=== PATIENT | female | born 1985 | race Caucasian/White ===

== ENCOUNTER 2018-01-26 22:11 | Emergency (ER) | payer BC, SELFPAY ==
[2018-01-26 22:14] VITALS: BP 130/91; PULSE 81; PULSE 84; RESP 14; TEMP 36.6; O2SAT 97; O2SAT 98; BMI 28.4
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
[2018-01-26] MEDS: Diphth,Pertuss(Acell),Tet Vac 0.5 ML Vial IM (23:05)
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
[2018-01-26 23:30] VITALS: BP 124/70; PULSE 75; RESP 14; O2SAT 99
[2018-01-26] MEDS: Acetaminophen 500 MG Tablet 1000 MG PO (23:37)
== END 2018-01-27 00:42 | disposition home or self-care (01) ==
PROVIDERS: Emergency Provider Emergency Medicine
DX: S06.0X0A Concussion without loss of consciousness, initial encounter (principal); S02.2XXA Fracture of nasal bones, initial encounter for closed fracture; S00.81XA Abrasion of other part of head, initial encounter; W22.8XXA Striking against or struck by other objects, initial encounter; Y93.89 Activity, other specified; Y92.008 Other place in unspecified non-institutional (private) residence as the place of occurrence of the external cause; Y99.8 Other external cause status; Z23 Encounter for immunization; Z72.0 Tobacco use
CPT/HCPCS: 12011; 70450; 90715; 99285

== ENCOUNTER → 2019-04-27 10:31 | Outpatient (CLI) | payer OTHER, SELFPAY ==
[2019-04-27 10:04] VITALS: BMI 25.9
--- NOTE | 2019-04-27 10:35 | RAD_ITS ---
STUDY: X-RAY - CERVICAL SPINE REASON FOR EXAM: Female, 33 years old. Neck pain TECHNIQUE: 3 view(s) of the cervical spine were obtained. COMPARISON: None FINDINGS: Normal anterior atlantoaxial articulation. Normal odontoid process. There is straightening of the normal cervical lordosis. Normal vertebral bodies and endplates. Normal disc space heights. Normal visualized intervertebral neuroforamina. The soft tissue structures are unremarkable. RAD/Cerv Spine 2 or 3 Views IMPRESSION: Straightening of the normal lordotic curvature possibly from muscular spasm. Electronically Signed: Clement Miranda MD at 12:13 EDT Tel , Service support ,
== END ==
PROVIDERS: Referring Provider Physician Assistant Surgical; Visit Provider Physician Assistant Surgical
DX: S16.1XXA Strain of muscle, fascia and tendon at neck level, initial encounter (principal)
CPT/HCPCS: 72040

== ENCOUNTER → 2019-05-14 15:50 | Outpatient (CLI) | payer OTHER, BC, SELFPAY ==
[2019-05-08 14:39] VITALS: BMI 25.9
--- NOTE | 2019-05-14 15:50 | MRI_ITS ---
STUDY: MRI CERVICAL SPINE WITHOUT CONTRAST REASON FOR EXAM: Female, 33 years old. Pain radiating to the right shoulder TECHNIQUE: Standardized fat and water weighted pulse sequences were obtained in the sagittal and axial planes. COMPARISON: None FINDINGS: Craniocervical junction is intact and aligned. Cervical spine is straightened and alignment. Marrow is normal. Paraspinous soft tissues are normal. C2-C3 has patent canal and foramina. C3-C4 has uncinate and facet hypertrophy and broad central disc osteophyte with moderate to severe cord compression. Foramina are patent bilaterally. C4-C5 has uncinate and facet hypertrophy and broad disc endplate osteophyte with mild to moderate cord compression. There is mild left and moderate right foraminal stenosis. C5-C6 has patent canal and foramina. C6-C7 has uncinate and facet hypertrophy and right central focal disc in plate osteophyte with mild cord compression. Foramina are patent bilaterally. C7-T1 has patent canal and foramina. Spinal cord is flattened at the compressing levels with normal signal. MRI/Spine Cervical (Routine) IMPRESSION: 1. Moderate to severe cord compression at C3-C4, [id number] at C4-C5. Expedited neurosurgical referral is advised. Electronically Signed: Cayla Escalona, at 17:25 EDT Tel , Service support ,
== END ==
PROVIDERS: Referring Provider Physician Assistant Surgical; Visit Provider Physician Assistant Surgical
DX: S29.019A Strain of muscle and tendon of unspecified wall of thorax, initial encounter (principal); S16.1XXA Strain of muscle, fascia and tendon at neck level, initial encounter
CPT/HCPCS: 72141

== ENCOUNTER 2019-07-22 19:59 | Emergency (ER) | payer OTHER, BC, SELFPAY ==
[2019-06-19 08:16] VITALS: BMI 25.9
[2019-07-22 20:01] VITALS: BP 135/84; PULSE 72; RESP 15; TEMP 36.9; O2SAT 99; BMI 28.3
[2019-07-22] MEDS: HYDROcodone Bitartrate/Apap 5/325 Tablet PO (21:21)
[2019-07-22 21:31] LABS: Bacteria 0 SEEN /hpf (None Seen); Mucous, Urine 0 SEEN /hpf (<or=2+); White Blood Cells 0 SEEN /hpf (0-5)
[2019-07-22 21:32] LABS: Color, Urine Straw (Yellow); Glucose, Dipstick Normal (Normal); Ketone-Dipstick Negative (Negative); Leukocyte Esterase-Dipstick Negative /ul (Negative); Nitrite-Dipstick Negative (Negative); Occult Blood-Urine Negative /ul (Negative); Protein-Dipstick Negative (Negative); Urine Bilirubin Dipstick Negative (Negative); Urine Clarity Clear (Clear); Urine Urobilinogen Normal (Normal)
[2019-07-22 21:34] LABS: Internal QC Validated? YES +Cl - CLEAR BKGD; Pregnancy, Urine Negative Negative
[2019-07-22 21:38] LABS: Squamous Epithelial Cells - UA 0-5 SEEN /hpf (5-10)
[2019-07-22 21:39] LABS: Red Blood Cells-Urine 0-5 SEEN /hpf (0-5)
[2019-07-22 22:00] VITALS: BP 134/72; PULSE 76; RESP 16; O2SAT 96
--- NOTE | 2019-07-22 22:49 | ED.VISSUMM ---
- ER Visit Summary Date of Service: 07/22/19 Chief Complaint: Neck pain History of Present Illness: The patient is a 34 F with neck pain for months that she believes was from a work injury. She had an MRI in April which showed spinal compression at C3-C4 and C4-C5. She is following up with neurosurgery. She has had ongoing pain. Today she had some urinary incontinence. She denies any lower back pain or leg weakness or numbness. Denies any history of lumbar or cauda equina disease. No other associated symptoms. No other urinary symptoms. Physical Examination: Afebrile and vital signs unremarkable. Neck is nontender. Good range of motion. Heart regular. Lungs clear. Abdomen soft. Extremities unremarkable. Good strength and sensation. Test Results: Urinalysis and test unremarkable. Emergency Department Course and Treatment: Patient received [place] for pain. I do not believe that her incontinence is related to her chronic neck pain. Her urinalysis and test were unremarkable. Patient will be advised to follow-up with her neurosurgeon and primary care provider. She was prescribed a short course of pain medicine. Treatment Plan: As above Disposition: Discharge Impression: 1. Chronic neck pain 2. Urinary incontinence This note was generated with [employer] dictation software. It may contain incorrect words, spelling, and punctuation that were not noted in review of the chart prior to signing ED Disposition - Plan for ED Patient: Referrals: Svetlana Lopez, SILVIANO-C [Primary Care Provider] -
--- NOTE | 2019-07-22 22:51 | DCINST.ED_ITS ---
ED Disposition - Plan for ED Patient: Instructions: ED Chronic Pain Prescriptions: Hydrocodone Bitart/Apap 5-325 [[place] 5MG-325MG] 1 tab PO Q6H PRN PRN 3 Days #10 tab PRN Reason: Pain Prescription Printed Referrals: Svetlana Lopez, STOCK HANDLER-C [Primary Care Provider] -
--- NOTE | 2019-07-22 22:51 | ED.DEP ---
ED Disposition - Plan for ED Patient: Instructions: ED Chronic Pain Prescriptions: Hydrocodone Bitart/Apap 5-325 [[place] 5MG-325MG] 1 tab PO Q6H PRN PRN 3 Days #10 tab PRN Reason: Pain Prescription Printed Referrals: Svetlana Lopez, FLOW SPECIALIST-C [Primary Care Provider] -
[2019-07-22 23:11] VITALS: RESP 16
== END 2019-07-22 23:12 | disposition home or self-care (01) ==
LOC: ED 21:15
PROVIDERS: Emergency Provider Emergency Medicine; Family Provider Nurse Practitioner Family; PCP Nurse Practitioner Family
DX: G89.29 Other chronic pain (principal); M54.2 Cervicalgia; R32 Unspecified urinary incontinence; F32.9 Major depressive disorder, single episode, unspecified
CPT/HCPCS: 81001; 81025; 99283

== ENCOUNTER 2022-01-22 14:47 | Outpatient (CLI) | payer BC, SELFPAY ==
--- NOTE | 2022-01-22 14:56 | CT_ITS ---
STUDY: CT MAXILLOFACIAL SINUSES REASON FOR EXAM: Female, 36 years old. SINUSITIS RADIATION DOSAGE (If Supplied By Facility): CTDIvol = ( 33.06 ) mGy, DLP = ( 771.87 ) mGycm TECHNIQUE: The patient was scanned in a multi detector CT scanner. High resolution axial imaging was performed without the administration of intravenous contrast material. Sagittal and coronal images were reconstructed. Individualized dose optimization techniques were used for this CT. COMPARISON: None. FINDINGS: FRONTAL SINUSES: Normal aeration, without mucosal inflammatory disease. ETHMOIDAL SINUSES: Normal aeration, without mucosal inflammatory disease. MAXILLARY SINUSES: Minimal mucosal thickening along the posterior aspect of the inferior portion of the right maxillary sinus. SPHENOIDAL SINUSES: Mild mucosal thickening of the posterior medial aspect of the right sphenoid sinus. There is patency of the bilateral maxillary infundibuli with normal uncinate processes, ethmoid bullae, and hiatus semilunaris. Normal bilateral middle turbinates. There is hypertrophy of the left inferior nasal turbinate. There is a left sided nasal septal deviation, but without a nasal septal spur. There is patency of the bilateral nasal airways. The visualized osseous structures are normal. The visualized bilateral orbital contents are normal. CT/Sinus/Facial Bone IMPRESSION: Minimal mucosal thickening of the right maxillary sinus inferiorly as well as the right sphenoid sinus. Electronically Signed: Mundo Arreola MD at 15:23 EST ,
== END 2022-01-22 23:59 | disposition home or self-care (01) ==
PROVIDERS: PCP Nurse Practitioner Family; Referring Provider Otolaryngology; Visit Provider Otolaryngology
DX: J32.8 Other chronic sinusitis (principal)
CPT/HCPCS: 70486